=== PATIENT | female | born 1980 | race Caucasian/White ===

== ENCOUNTER 2018-01-05 17:58 | Emergency (ER) | payer OTHER ==
[~2018-01-05] VITALS: Ht 172.7 cm; Wt 97.5 kg
[~2018-01-05 17:58] MED LIST: ACET500; ALBU90I INH; ALBU90OI INH; ALBU90OI6 IH; ALBU90OI6 INH; AMOCLA500 PO; ASPI81EC PO; AZIT250 PO; CEPH500 PO; CETI5 PO; CODGUAEL PO; DIPH50; DIPH50 PO; FEXO180; FEXPSEER PO; FLUSAL1005 IH; HYDACE5 PO; HYDR1TAB94 PO; IBUP600 PO; IBUP800; IBUP800 PO; METPRE4DP PO; MONT10T PO; NAPR500 PO; Norco 5-325 Ta1 EACH PO; OXYACE5T PO; PRED20 PO; PROCODE120 PO; PROG100 PO; PROP10 PO; PSEU30 PO; RXHYD5325 PO; RXHYDACE PO; Ultram50 MG PO; WARF5 PO
[2018-01-05] MEDS ORDERED: LISI20 PO (18:44)
[2018-01-05] MEDS ORDERED: HYDR1TAB94 PO (18:45)
[2018-01-05] MEDS ORDERED: PRAV20 PO (18:45)
[2018-01-05] MEDS ORDERED: Cipro500 MG PO (20:08)
== END 2018-01-05 20:18 | disposition home or self-care (01) ==
LOC: ER 17:58
DX: S91.134A Puncture wound without foreign body of right lesser toe(s) without damage to nail, initial encounter (principal); J45.909 Unspecified asthma, uncomplicated; J44.9 Chronic obstructive pulmonary disease, unspecified; F17.210 Nicotine dependence, cigarettes, uncomplicated; Z88.2 Allergy status to sulfonamides; Z88.8 Allergy status to other drugs, medicaments and biological substances; Z91.09 Other allergy status, other than to drugs and biological substances; W22.8XXA Striking against or struck by other objects, initial encounter
CPT/HCPCS: 73630; 90471; 90714; 99283

== ENCOUNTER 2018-06-05 12:44 | Emergency (ER) | payer OTHER ==
[~2018-06-05] VITALS: Ht 172.7 cm; Wt 97.5 kg
[~2018-06-05 12:44] MED LIST changes: +Cipro500 MG PO; +LISI20 PO; +PRAV20 PO
[2018-06-05] MEDS ORDERED: PRED20 PO (12:51)
[2018-06-05] MEDS ORDERED: AMOX875 PO (12:51)
[2018-06-05] MEDS ORDERED: KETO10 PO (13:31)
== END 2018-06-05 13:40 | disposition home or self-care (01) ==
LOC: ER 12:44
DX: G43.009 Migraine without aura, not intractable, without status migrainosus (principal); J45.909 Unspecified asthma, uncomplicated; F17.200 Nicotine dependence, unspecified, uncomplicated; Z79.52 Long term (current) use of systemic steroids
CPT/HCPCS: 96374; 96375; 99283-25; J0780; J1200; J1885; J2405

== ENCOUNTER 2018-06-30 20:14 | Emergency (ER) | payer OTHER ==
[~2018-06-30] VITALS: Ht 172.7 cm; Wt 97.5 kg
[~2018-06-30 20:14] MED LIST changes: +AMOX875 PO; +KETO10 PO
== END 2018-06-30 21:59 | disposition home or self-care (01) ==
LOC: ER 20:14
DX: M79.662 Pain in left lower leg (principal); J45.909 Unspecified asthma, uncomplicated; F17.200 Nicotine dependence, unspecified, uncomplicated; Z88.2 Allergy status to sulfonamides; Z88.8 Allergy status to other drugs, medicaments and biological substances; Z91.048 Other nonmedicinal substance allergy status; Z86.718 Personal history of other venous thrombosis and embolism
CPT/HCPCS: 93971; 99284-25

== ENCOUNTER 2018-11-22 08:44 | Emergency (ER) | payer OTHER ==
[~2018-11-22] VITALS: Ht 172.7 cm; Wt 106.6 kg
[2018-11-22] MEDS ORDERED: Lisinopril1 GM (09:02)
[2018-11-22] MEDS ORDERED: DULO30 (09:02)
[2018-11-22] MEDS ORDERED: ATOR10 (09:02)
== END 2018-11-22 10:19 | disposition home or self-care (01) ==
LOC: ER 08:44
DX: S93.402A Sprain of unspecified ligament of left ankle, initial encounter (principal); J45.909 Unspecified asthma, uncomplicated; F17.210 Nicotine dependence, cigarettes, uncomplicated; Z88.2 Allergy status to sulfonamides; Z88.8 Allergy status to other drugs, medicaments and biological substances; Z91.048 Other nonmedicinal substance allergy status; Z79.899 Other long term (current) drug therapy; W01.0XXA Fall on same level from slipping, tripping and stumbling without subsequent striking against object, initial encounter
CPT/HCPCS: 29515; 73610; 99283-25; L1906

== ENCOUNTER 2019-10-13 06:44 | Emergency (ER) | payer OTHER ==
[~2019-10-13] VITALS: Ht 182.9 cm; Wt 86.2 kg
[~2019-10-13 06:44] MED LIST changes: +ATOR10; +DULO30; +Lisinopril1 GM
[2019-10-13] MEDS ORDERED: HYDROCODONE-AC1 EAC1 PO (07:01)
[2019-10-13] MEDS ORDERED: Flonase 0.05% N16 GM (07:01)
[2019-10-13] MEDS ORDERED: ALBU90OI (07:01)
[2019-10-13] MEDS ORDERED: ALLEGRA ALLERG180 MG (07:02)
== END 2019-10-13 08:19 | disposition home or self-care (01) ==
LOC: ER 06:44
DX: J45.901 Unspecified asthma with (acute) exacerbation (principal); J01.90 Acute sinusitis, unspecified; F17.210 Nicotine dependence, cigarettes, uncomplicated
CPT/HCPCS: 71046; 99283-25

== ENCOUNTER 2020-07-02 22:33 | Emergency (ER) | payer OTHER ==
[~2020-07-02] VITALS: Ht 172.7 cm; Wt 106.6 kg
[~2020-07-02 22:33] MED LIST changes: +ALBU90OI; +ALLEGRA ALLERG180 MG; +Flonase 0.05% N16 GM; +HYDROCODONE-AC1 EAC1 PO
[2020-07-02] MEDS ORDERED: [UNRECOGNIZED DRUG - OTHER] TOP (23:44)
== END 2020-07-03 00:03 | disposition home or self-care (01) ==
LOC: ER 22:33
DX: M77.11 Lateral epicondylitis, right elbow (principal); Z88.2 Allergy status to sulfonamides; Z91.048 Other nonmedicinal substance allergy status; Z88.8 Allergy status to other drugs, medicaments and biological substances; Z79.899 Other long term (current) drug therapy; J44.9 Chronic obstructive pulmonary disease, unspecified; F17.210 Nicotine dependence, cigarettes, uncomplicated
CPT/HCPCS: 96372; 99283; A9270; J1885

== ENCOUNTER 2020-12-26 07:22 | Day surgery (SDC) | payer OTHER ==
[~2020-12-26] VITALS: Ht 172.7 cm; Wt 105.9 kg
[~2020-12-26 07:22] MED LIST changes: +ATOR20 PO; +OMEP20ER PO; +[UNRECOGNIZED DRUG - OTHER] TOP
[2020-12-26] MEDS ORDERED: PSEUDOEPHEDRINE 30 MG (07:36)
--- NOTE | 2020-12-26 07:45 | NUR ---
Ambulatory in Day Surgery History, Chart, Medications and Allergies reviewed before start of procedure. Lungs clear T/O to Auscultation. PT REPORTS NPO SINCE MIDNIGHT.
--- NOTE | 2020-12-26 07:59 | NUR ---
12/26/20 0759 [place] [place] History, Chart, Medications and Allergies reviewed before start of procedure. Patient confirms NPO status and agrees with scheduled surgery. PATIENT DETERMINED TO BE ASA APPROPRIATE FOR PROPOFOL SEDATION PRIOR TO START OF EGD BY DR JUNIOR. 3-LEAD EKG REVIEWED WITH PHYSICIAN PRIOR TO START OF PROCEDURE. MONITOR INTACT WITH CONTINUOUS PULSE OXIMETRY AND INTERMITTENT BP.
--- NOTE | 2020-12-26 08:29 | NUR ---
PT TRANSFERRED TO RECOVERY AREA, AWAKE, ANSWERS QUESTION APPROPRIATELY, POST PROCEDURAL VS COMMENCED AND STABLE,
--- NOTE | 2020-12-26 08:52 | NUR ---
POST PROCEDURAL VSS, DENIES N/V, DENIES PAIN, NO BLEEDING, REMOVED PERIPHER IV WNL, PT WILL BE ESCORTED TO AWAITING VEHICLE WITH HER BELONGINGS
== END 2020-12-26 09:00 | disposition home or self-care (01) ==
LOC: ORSCMMR 07:22 → ORD 08:00 → ORSCMMR 08:00
PROVIDERS: Internal Medicine Gastroenterology
PROC: 0DB48ZX Excision of Esophagogastric Junction, Via Natural or Artificial Opening Endoscopic, Diagnostic (ICD-10-PCS; principal; 2020-12-26 08:00)
PROC: 0DB58ZX Excision of Esophagus, Via Natural or Artificial Opening Endoscopic, Diagnostic (ICD-10-PCS; principal; 2020-12-26 08:00)
PROC: 0DB68ZX Excision of Stomach, Via Natural or Artificial Opening Endoscopic, Diagnostic (ICD-10-PCS; principal; 2020-12-26 08:00)
PROC: 0D758ZZ Dilation of Esophagus, Via Natural or Artificial Opening Endoscopic (ICD-10-PCS; principal; 2020-12-26 08:00)
DX: R13.10 Dysphagia, unspecified (principal); K21.9 Gastro-esophageal reflux disease without esophagitis; E78.00 Pure hypercholesterolemia, unspecified; J44.9 Chronic obstructive pulmonary disease, unspecified; F17.210 Nicotine dependence, cigarettes, uncomplicated; Z79.899 Other long term (current) drug therapy
CPT/HCPCS: 88305; 88342; A9270; C1726; J2704; J7120

== ENCOUNTER → 2022-01-18 | Outpatient (CLI) | payer OTHER ==
[~2022-01-18] MED LIST changes: +PSEUDOEPHEDRINE 30 MG
== END | disposition home or self-care (01) ==
LOC: LAB SHORT 11:26
DX: L02.411 Cutaneous abscess of right axilla (principal)
CPT/HCPCS: 87070; 87075; 87076; 87205

== ENCOUNTER → 2022-08-27 | Outpatient (CLI) | payer OTHER | END | disposition home or self-care (01) | LOC: LAB SHORT 08:06 | DX: N39.0 Urinary tract infection, site not specified (principal) | CPT/HCPCS: 87086 ==

== ENCOUNTER 2023-04-09 13:50 | Emergency (ER) | payer OTHER ==
[~2023-04-09] VITALS: Ht 172.7 cm; Wt 99.8 kg
[2023-04-09 14:25] LABS: BASOPHILS ABSOLUTE AUTO 0.04 K/mm3 (0.00-0.23); BASOPHILS PERCENT AUTO 1 % (0-2); EOSINOPHILS ABSOLUTE AUTO 0.08 K/mm3 (0.00-0.68); EOSINOPHILS PERCENT AUTO 1 % (0-6); Hemoglobin 14.5 g/dL (11.5-16.0); IMMATURE GRAN ABSOLUTE AUTO 0.02 K/mm3 (0.00-0.10); IMMATURE GRAN PERCENT AUTO 0 % (0-1); LYMPHOCYTES ABSOLUTE AUTO 1.88 K/mm3 (0.84-5.20); LYMPHOCYTES PERCENT AUTO 26 % (21-46); MONOCYTES ABSOLUTE AUTO 0.55 K/mm3 (0.16-1.47); MONOCYTES PERCENT AUTO 8 % (4-13); Mean Corpuscular HGB 30.5 pg (26.0-34.0); Mean Corpuscular HGB Conc 34.5 g/dL (31.5-36.5); Mean Corpuscular Volume 88 fL (80-100); Mean Platelet Volume 11.3 fL (9.1-12.4); NEUTROPHILS ABSOLUTE AUTO 4.81 K/mm3 (1.96-9.15); NEUTROPHILS PERCENT AUTO 65 % (41-73); Platelet Count 142 K/mm3 (150-400); RDW Coefficient Variation 12.5 % (11.7-14.2); Red Blood Cell Count 4.75 M/mm3 (3.80-5.20); White Blood Cell Count 7.38 K/mm3 (4.00-11.30)
[2023-04-09 14:42] LABS: Albumin, Blood 3.3 g/dL (3.4-5.0); Albumin/Globulin Ratio 0.9 (0.8-1.8); Bilirubin, Total 0.2 mg/dL (0.1-1.0); Bun/Creatinine Ratio 11.3 (12.0-20.0); Calcium, Blood 8.7 mg/dL (8.5-10.1); Creatinine, Blood 0.8 mg/dL (0.40-1.00); Globulin, Blood 3.7 g/dL (2.2-4.0); Potassium, Blood 3.6 mmol/L (3.5-5.5)
[2023-04-09] MEDS ORDERED: Cymbalta20 MG PO (15:17)
[2023-04-09 17:12] LABS: Source, Urine Clean Catch
[2023-04-09 17:15] LABS: Appearance, Urine Clear (Clear); Bilirubin, Urine Neg (Neg); Blood, Urine Neg (Neg); Color, Urine Yellow (P-Yellow); Glucose Qualitative, Urine Neg (Neg); Ketones, Urine Neg (Neg); Leukocyte Esterase, Urine Neg (Neg); Nitrite, Urine Neg (Neg); Protein, Urine 2+ (Neg); Urobilinogen, Urine NORM (Normal); pH, Urine 6.5 (5.0-8.0)
[2023-04-09 17:26] LABS: Bacteria Few /hpf; Red Blood Cells, Urine 0-2 /hpf (0-2); Squamous Epithelial Cells Few /hpf (Few); White Blood Cells, Urine 0-2 /hpf (0-5)
[2023-04-09] MEDS ORDERED: ONDA4ODT MM (18:11)
[2023-04-09] MEDS ORDERED: DICY20 PO (18:11)
[2023-04-09 18:15] VITALS: BP 106/76
== END 2023-04-09 18:41 | disposition home or self-care (01) ==
LOC: ER 13:50
PROVIDERS: Physician Assistant; Student in an Organized Health Care Education/Training Program
DX: R10.13 Epigastric pain (principal); K59.00 Constipation, unspecified; R11.2 Nausea with vomiting, unspecified; J44.9 Chronic obstructive pulmonary disease, unspecified; F17.210 Nicotine dependence, cigarettes, uncomplicated; Z88.2 Allergy status to sulfonamides; Z88.8 Allergy status to other drugs, medicaments and biological substances; Z91.048 Other nonmedicinal substance allergy status; Z79.899 Other long term (current) drug therapy
CPT/HCPCS: 74018; 74177; 80053; 81001; 83690; 85025; 96361; 96374-59; 96375; 99284-25; A9270; J1885; J2405; J7030; Q9967

== ENCOUNTER → 2023-12-01 | Outpatient (CLI) | payer OTHER ==
[~2023-12-01] MED LIST changes: +Cymbalta20 MG PO; +DICY20 PO; +ONDA4ODT MM
== END ==
LOC: LAB SHORT 16:10
DX: N39.0 Urinary tract infection, site not specified (principal)
CPT/HCPCS: 87077; 87086; 87186

== ENCOUNTER → 2024-08-05 | Outpatient (CLI) | payer OTHER ==
[2024-08-05 18:22] LABS: Source, Urine Voided
[2024-08-05 19:41] LABS: Appearance, Urine Cloudy (Clear); Bilirubin, Urine Neg (Neg); Blood, Urine 1+ (Neg); Color, Urine Yellow (P-Yellow); Glucose Qualitative, Urine Neg (Neg); Ketones, Urine Neg (Neg); Leukocyte Esterase, Urine Neg (Neg); Nitrite, Urine Neg (Neg); Protein, Urine Neg (Neg); Specific Gravity, Urine 1.025 (1.003-1.022); Urobilinogen, Urine NORM (Normal)
[2024-08-05 19:59] LABS: Amorphous Mod (0-Heavy); Bacteria Many /hpf; Mucus Light (0-Heavy); Red Blood Cells, Urine 0-2 /hpf (0-2); Squamous Epithelial Cells Few /hpf (Few); White Blood Cells, Urine 0-2 /hpf (0-5)
== END | disposition home or self-care (01) ==
LOC: LAB 18:15 → LAB SHORT 18:15
PROVIDERS: Family Medicine
DX: R31.29 Other microscopic hematuria (principal)
CPT/HCPCS: 81001; 87086

== ENCOUNTER 2024-10-19 04:17 | Emergency (ER) | payer OTHER ==
[~2024-10-19] VITALS: Ht 172.7 cm; Wt 90.7 kg
[2024-10-19 04:37] VITALS: BP 135/95
[2024-10-19] MEDS ORDERED: Ondansetron HCl 2 MG / ML 2ML Vial IV ONE (04:40)
[2024-10-19] MEDS ORDERED: FentaNYL Citrate 50 MCG/ML 2 ML Injection IV ONE (04:45)
[2024-10-19 05:10] LABS: BASOPHILS ABSOLUTE AUTO 0.06 K/mm3 (0.00-0.23); BASOPHILS PERCENT AUTO 1 % (0-2); EOSINOPHILS ABSOLUTE AUTO 0.17 K/mm3 (0.00-0.68); EOSINOPHILS PERCENT AUTO 2 % (0-6); Hematocrit 44.6 % (33.0-51.0); Hemoglobin 15.3 g/dL (11.5-16.0); IMMATURE GRAN ABSOLUTE AUTO 0.03 K/mm3 (0.00-0.10); IMMATURE GRAN PERCENT AUTO 0 % (0-1); LYMPHOCYTES ABSOLUTE AUTO 2.48 K/mm3 (0.84-5.20); LYMPHOCYTES PERCENT AUTO 24 % (21-46); MONOCYTES ABSOLUTE AUTO 0.69 K/mm3 (0.16-1.47); MONOCYTES PERCENT AUTO 7 % (4-13); Mean Corpuscular HGB 30.6 pg (26.0-34.0); Mean Corpuscular HGB Conc 34.3 g/dL (31.5-36.5); Mean Corpuscular Volume 89 fL (80-100); Mean Platelet Volume 10.8 fL (9.1-12.4); NEUTROPHILS ABSOLUTE AUTO 6.77 K/mm3 (1.96-9.15); NEUTROPHILS PERCENT AUTO 66 % (41-73); Platelet Count 160 K/mm3 (150-400); RDW Coefficient Variation 12.8 % (11.7-14.2); RDW Standard Deviation 41.6 fL (35.1-46.3)
[2024-10-19 05:32] LABS: Source, Urine Clean Catch
[2024-10-19 05:36] LABS: Appearance, Urine Clear (Clear); Bilirubin, Urine Neg (Neg); Blood, Urine 1+ (Neg); Color, Urine Yellow (P-Yellow); Glucose Qualitative, Urine Neg (Neg); Ketones, Urine Neg (Neg); Leukocyte Esterase, Urine 1+ (Neg); Nitrite, Urine Neg (Neg); Protein, Urine 1+ (Neg); Urobilinogen, Urine NORM (Normal)
[2024-10-19 05:43] LABS: Albumin, Blood 3.7 g/dL (3.4-5.0); Albumin/Globulin Ratio 1.1 (0.8-1.8); Bilirubin, Total 0.5 mg/dL (0.1-1.0); Bun/Creatinine Ratio 12.8 (12.0-20.0); Calcium, Blood 9.2 mg/dL (8.5-10.1); Creatinine, Blood 0.7 mg/dL (0.40-1.00); Globulin, Blood 3.5 g/dL (2.2-4.0); Potassium, Blood 3.6 mmol/L (3.5-5.5); Total Protein, Blood 7.2 g/dL (6.4-8.2)
[2024-10-19 05:45] LABS: Amorphous Light (0-Heavy); Bacteria Mod /hpf; Mucus Light (0-Heavy); Red Blood Cells, Urine 0-2 /hpf (0-2); Squamous Epithelial Cells Few /hpf (Few)
== END 2024-10-19 06:37 | disposition home or self-care (01) ==
LOC: ER 04:17
PROVIDERS: Student in an Organized Health Care Education/Training Program
DX: K52.9 Noninfective gastroenteritis and colitis, unspecified (principal); J44.9 Chronic obstructive pulmonary disease, unspecified; F17.210 Nicotine dependence, cigarettes, uncomplicated; Z88.2 Allergy status to sulfonamides; Z88.8 Allergy status to other drugs, medicaments and biological substances; Z91.09 Other allergy status, other than to drugs and biological substances; Z79.899 Other long term (current) drug therapy
CPT/HCPCS: 74177; 80053; 81001; 81025; 83690; 85025; 87086; 96374-59; 96375; 99284-25; J2405; J3010; Q9967

== ENCOUNTER → 2025-02-01 | Outpatient (CLI) | payer OTHER ==
[2025-02-06 01:29] LABS: 6-ACETYLMORPHINE, URN, QUANT <10 ng/mL; CODEINE, URN, QUANT <20 ng/mL; HYDROCODONE, URN, QUANT <20 ng/mL; HYDROMORPHONE, URN, QUANT <20 ng/mL; MORPHINE, URN, QUANT <20 ng/mL; NORHYDROCODONE, URN, QUANT <20 ng/mL; NOROXYCODONE, URN, QUANT <20 ng/mL; NOROXYMORPHONE, URN, QUANT <20 ng/mL; OXYCODONE, URN, QUANT <20 ng/mL; OXYMORPHONE, URN, QUANT <20 ng/mL
== END | disposition home or self-care (01) ==
LOC: LAB 15:25 → LAB SHORT 15:25
PROVIDERS: Nurse Practitioner Family
DX: Z51.81 Encounter for therapeutic drug level monitoring (principal); Z79.899 Other long term (current) drug therapy
CPT/HCPCS: G0480